=== PATIENT | female | born 1980 | race African-American/Black ===

== ENCOUNTER 2018-05-05 08:54 | Day surgery (SDC) | payer MEDICAID ==
[2018-05-04 13:12] LABS: Basophils # (auto) 0 uL; Basophils % (auto) 0.9 % (0.0-2.0); Eosinophils # (auto) 0.1 uL; Eosinophils % (auto) 2.2 % (0.0-7.0); Hematocrit 40.2 % (36.0-46.0); Hemoglobin 13.1 g/dL (12.2-16.2); Lymphocytes # (auto) 1.6 uL; Lymphocytes % (auto) 39.7 % (10.0-50.0); Mean Corpuscular Hemoglobin 31.4 pg (28.0-32.0); Mean Corpuscular Hgb Conc. 32.5 g/dL (32.0-36.0); Mean Corpuscular Volume 96.8 fL (80.0-100.0); Monocytes # (auto) 0.3 uL; Monocytes % (auto) 6.3 % (0.0-12.0); Neutrophils # (auto) 2.1 uL; Neutrophils % (auto) 50.9 % (37.0-80.0); Platelet Count (auto) 238 10^3/uL (140-450); Red Blood Cells 4.16 10^6/uL (4.0-5.20); White Blood Cell 4.1 10^3/uL (4.4-10.8)
[2018-05-04 13:26] LABS: INR 1.03 (0.9-1.15); Partial Thromboplastin Time 30.7 sec (23.78-33.04)
[2018-05-04 13:36] LABS: Albumin 4.1 g/dL (3.4-5.0); Calcium 8.7 mg/dL (8.5-10.1); Potassium 3.5 mmol/L (3.5-5.1)
[2018-05-04 13:39] LABS: BUN/Creatinine Ratio 20.3; Bilirubin, Total 0.3 mg/dL (0.2-1.0)
[~2018-05-05] VITALS: Ht 175.3 cm; Wt 81.6 kg
[~2018-05-05 08:54] MED LIST: LISI10TA6 PO; TRAM50TA2 PO
[2018-05-05] MEDS ORDERED: SODIUM CHLORIDE LOCK 10 ML ONE (10:51)
[2018-05-05] MEDS ORDERED: ONDANSETRON HCL 4 MG/2 ML VIAL ONE (10:51)
[2018-05-05] MEDS ORDERED: fentaNYL CITRATE 100 MCG/2 ML VL ONE (10:51)
[2018-05-05] MEDS ORDERED: MIDAZOLAM HCL 1MG/1ML-2 ML VIAL ONE (10:51)
[2018-05-05] MEDS ORDERED: PROPOFOL 10 MG/ML 20 ML IV ONE (10:51)
[2018-05-05] MEDS ORDERED: CLINDAMYCIN 600MG IV 50 ML IV ONE (11:34)
[2018-05-05] MEDS ORDERED: BUPIVACAINE 0.75% INJ 10ML MPV SDV IJ ONE (11:39)
[2018-05-05] MEDS ORDERED: ACCU-CHEK COMFORT CURVE STRIP VI ONE (13:00)
[2018-05-05] MEDS ORDERED: METOCLOPRAMIDE HCL 5MG/ml INJ 2ml VIAL IV ONE (13:00)
[2018-05-05] MEDS ORDERED: HYDROmorphone HCL 2 MG/ML VL IV PRN (13:00)
[2018-05-05] MEDS ORDERED: KETOROLAC TROMETH 30 MG/ML 1ML VIAL IV ONE (13:00)
[2018-05-05 13:50] VITALS: BP 144/79
== END 2018-05-05 13:50 | disposition home or self-care (01) ==
LOC: SUR 08:54
PROVIDERS: ATTEND Podiatrist Foot & Ankle Surgery
DX: M20.42 Other hammer toe(s) (acquired), left foot (principal); M20.41 Other hammer toe(s) (acquired), right foot; I10 Essential (primary) hypertension; G43.909 Migraine, unspecified, not intractable, without status migrainosus; Z87.891 Personal history of nicotine dependence; Z79.899 Other long term (current) drug therapy; Z79.891 Long term (current) use of opiate analgesic
CPT/HCPCS: 28285; J3010; V2790; 36415; 80053; 84702; 85025; 85610; 85730; J2250; J2405; J2704; J3490